=== PATIENT | female | born 1965 | race Caucasian/White ===

== ENCOUNTER 2020-05-06 07:49 | Emergency (ER) | payer OTHER ==
[~2020-05-06] VITALS: Ht 157.5 cm; Wt 74.4 kg
[~2020-05-06 07:49] MED LIST: ASPIR 8181 MG PO; COL250 PO; METFORMIN HCL1000 MG PO; NORCO1 TA1 PO; ZESTRIL20 MG PO
[2020-05-06 08:43] LABS: BASOPHIL % 0.6 % (0-2); PLATELET COUNT 284 x10^3mcL (130-400)
[2020-05-06 09:26] LABS: CALCIUM 8.9 mg/dL (8.5-10.1); CARBON DIOXIDE 28.9 mmol/L (21-32); CHLORIDE SERUM 100 mmol/L (98-107); CREATININE SERUM 0.5 mg/dL (0.6-1.0); GFR1 > 60 mL/min; GLUCOSE SERUM 234 mg/dL (74-106); SODIUM SERUM 136 mmol/L (136-145)
[2020-05-06 09:30] LABS: ALBUMIN 3.8 g/dL (3.4-5.0); ALKALINE PHOSPHATASE 88 U/L (46-116); ALT/SGPT 41 U/L (14-59); AST/SGOT 23 U/L (15-37); BILIRUBIN TOTAL 3.41 mg/dL (0.20-1.00); LIPASE 226 IU/L (73-393); TOTAL PROTEIN, SERUM 7.1 g/dL (6.4-8.2)
[2020-05-06 10:43] VITALS: BP 151/75
== END 2020-05-06 10:43 | disposition home or self-care (01) ==
LOC: ED 07:49
PROVIDERS: Emergency Medicine
DX: K29.20 Alcoholic gastritis without bleeding (principal); F10.10 Alcohol abuse, uncomplicated; I10 Essential (primary) hypertension; E11.9 Type 2 diabetes mellitus without complications; Z90.49 Acquired absence of other specified parts of digestive tract